=== PATIENT | female | born 1960 | race Caucasian/White ===

== ENCOUNTER 2017-09-10 10:58 | Emergency (ER) | payer BC ==
[2017-09-10 11:07] VITALS: BMI 26.4
[2017-09-10] MEDS ORDERED: ACETAMINOPHEN INJECTION 100 ML IVPB ONE (12:31)
[2017-09-10] MEDS ORDERED: SODIUM CHLORIDE 1,000 ML IV STA ×2 (12:49→14:39)
[2017-09-10] MEDS ORDERED: ACETAMINOPHEN 1000 MG/100 ML VIAL (NON FORMULARY) IVPB ONE (12:49)
[2017-09-10 13:05] LABS: BASOPHIL 0.2 % (0-2.0); EOSINOPHIL 0.1 % (0-4.5); MCH 28.1 pg (25.7-33.7); MCHC 32.6 g/dl (32.0-36.0); MEAN CELL VOLUME 86.4 fl (80-96); MEAN PLT VOLUME 8.2 fl (7.5-11.1); NEUTROPHILS 93.1 % (42.8-82.8); PLATELET COUNT 259 K/MM3 (134-434); RDW 13.4 % (11.6-15.6); WHITE BLOOD COUNT 11.7 K/mm3 (4.0-10.0)
[2017-09-10 13:06] LABS: URINE APPEARANCE SLCLOUDY; URINE BILIRUBIN NEGATIVE (NEGATIVE); URINE BLOOD NEGATIVE (NEGATIVE); URINE COLOR YELLOW; URINE GLUCOSE (UA) NEGATIVE (NEGATIVE); URINE KETONE NEGATIVE (NEGATIVE); URINE LEUK ESTERASE NEGATIVE (NEGATIVE); URINE NITRITE NEGATIVE (NEGATIVE); URINE PROTEIN NEGATIVE (NEGATIVE); URINE UROBILINOGEN NEGATIVE mg/dL (0.2-1.0)
--- NOTE | 2017-09-10 13:10 | PDOC ---
History of Present Illness <Osman Bravo - Last Filed: 09/10/17 14:46> - General History Source: Patient Exam Limitations: No Limitations - History of Present Illness Travel History: No Initial Comments: 09/10/17 12:10 56-year-old female presents to the ED with complaints of sudden onset of generalized abdominal pain associated with chills and mild nausea. Patient denies recent travel, recent illness, GI disorders, recent change in diet, recent sick contacts. Patient has no urinary complaints, rash, abdominal distention, or history of GI disorders. Timing/Duration: reports: constant, getting worse Quality: reports: moderate, cramping Abdominal Pain Onset Location: reports: generalized abdomen Pain Radiation: reports: no radiation Activities at Onset: reports: none Aggravating Factors: improves with: None Alleviating Factors: improves with: None <Medina Hayes - Last Filed: 09/10/17 19:34> - General Chief Complaint: Pain Stated Complaint: ABD PAIN Time Seen by Provider: 09/10/17 12:02 Past History <Osman Bravo - Last Filed: 09/10/17 14:46> - Travel Traveled outside of the country in the last 30 days: No - Past Medical History COPD: No HTN: No Hypercholesterolemia: No - Surgical History Appendectomy: Yes - Suicide/Smoking/Psychosocial Hx Smoking Status: No Smoking History: Never smoked Number of Cigarettes Smoked Daily: 0 Hx Alcohol Use: No Drug/Substance Use Hx: No Substance Use Type: None Patient Lives Alone: No Lives with/in: spouse/SO <Medina Hayes - Last Filed: 09/10/17 19:34> - Past Medical History Allergies/Adverse Reactions: Allergies Allergy/AdvReac Type Severity Reaction Status Date / Time No Known Allergies Allergy Verified 09/10/17 11:07 Home Medications: Ambulatory Orders Ondansetron [Zofran Odt -] 4 mg SL TID PRN #12 od.tablet 09/10/17 Review of Systems - Review of Systems Able to Perform ROS?: Yes Constitutional: Yes: Chills, Fever HEENTM: No: Symptoms Reported Respiratory: No: Symptoms reported Cardiac (ROS): No: Symptoms Reported ABD/GI: Yes: Nausea, Abdominal cramping : No: Symptoms Reported Musculoskeletal: No: Symptoms Reported Integumentary: No: Symptoms Reported Neurological: No: Symptoms reported <Freddy[place] - Last Filed: 09/10/17 19:34> *Physical Exam - Vital Signs Last Vital Signs Temp Pulse Resp BP Pulse Ox 100.7 F H 101 H 20 133/79 98 09/10/17 11:05 09/10/17 11:05 09/10/17 11:05 09/10/17 11:05 09/10/17 11:05 <Osman Bravo - Last Filed: 09/10/17 14:46> - Vital Signs Last Vital Signs Temp Pulse Resp BP Pulse Ox 100.7 F H 101 H 20 133/79 98 09/10/17 11:05 09/10/17 11:05 09/10/17 11:05 09/10/17 11:05 09/10/17 11:05 - Physical Exam General Appearance: Yes: Nourished, Appropriately Dressed. No: Apparent Distress HEENT: positive: Pharynx Normal. negative: Pale Conjunctivae Neck: positive: Supple Respiratory/Chest: positive: Lungs Clear, Normal Breath Sounds. negative: Respiratory Distress, Accessory Muscle Use Cardiovascular: positive: Regular Rhythm, Tachycardia. negative: Murmur Gastrointestinal/Abdominal: positive: Normal Bowel Sounds, Soft, Guarding (mild generalized), Tenderness (generalized). negative: Distended, Rebound Musculoskeletal: negative: CVA Tenderness Extremity: positive: Normal Capillary Refill. negative: Pedal Edema Integumentary: positive: Normal Color, Warm, Moist Neurologic: positive: Motor Strength 5/5 (ambulatory) <Freddy[place] - Last Filed: 09/10/17 19:34> ED Treatment Course - LABORATORY CBC & Chemistry Diagram: 09/10/17 12:50 09/10/17 12:50 - ADDITIONAL ORDERS Additional order review: Laboratory Results 09/10/17 09/10/17 09/10/17 13:33 12:50 12:50 PT with INR INR Sodium Potassium Chloride Carbon Dioxide Anion Gap BUN Creatinine Creat Clearance w eGFR Random Glucose Lactic Acid 2.8 H* Calcium Total Bilirubin AST ALT Alkaline Phosphatase Creatine Kinase Troponin I Total Protein Albumin Lipase Cancelled Urine Color Urine Appearance Urine pH Ur Specific [place] Urine Protein Urine Glucose (UA) Urine Ketones Urine Blood Urine Nitrite Urine Bilirubin Urine Urobilinogen Blood Type O POSITIVE Antibody Screen Negative 12/09/10/17 09/10/17 12:50 12:50 12:50 PT with INR 13.00 H INR 1.15 H Sodium 139 Potassium 3.9 Chloride 103 Carbon Dioxide 28 Anion Gap 8 BUN 14 Creatinine 0.8 Creat Clearance w eGFR > 60 Random Glucose 113 H Lactic Acid Calcium 8.9 Total Bilirubin 0.6 D AST 20 ALT 27 Alkaline Phosphatase 172 H Creatine Kinase 110 Troponin I < 0.02 Total Protein 8.0 Albumin 3.9 Lipase 93 Urine Color Yellow Urine Appearance Slcloudy Urine pH 5.0 Ur Specific [place] 1.023 Urine Protein Negative Urine Glucose (UA) Negative Urine Ketones Negative Urine Blood Negative Urine Nitrite Negative Urine Bilirubin Negative Urine Urobilinogen Negative Blood Type Antibody Screen 09/10/17 13:00 Influenza Types A,B Antigen (GIAN) - Final Nasopharyngeal Swab - Final 09/10/17 12:50 RBC 5.04 MCV 86.4 MCHC 32.6 RDW 13.4 MPV 8.2 Neutrophils % 93.1 H Lymphocytes % 3.0 L D Monocytes % 3.6 L Eosinophils % 0.1 Basophils % 0.2 - Medications Given in the ED: ED Medications Discontinued Medications Generic Name Dose Route Start Last Admin Trade Name Freq PRN Reason Stop Dose Admin Acetaminophen 1,000 mg 09/10/17 12:49 09/10/17 12:53 Ofirmev Injection - IVPB 09/10/17 12:50 1,000 mg ONCE ONE Administration Sodium Chloride 1,000 mls @ 1,000 mls/hr 09/10/17 12:49 09/10/17 12:53 Normal Saline - IV 09/10/17 13:48 1,000 mls/hr ASDIR STA Administration <Osman Bravo - Last Filed: 09/10/17 14:46> - LABORATORY CBC & Chemistry Diagram: 09/10/17 12:50 09/10/17 12:50 - RADIOLOGY Radiology Studies Ordered: Category Date Time Status CHEST X-RAY PORTABLE* [RAD] Stat Radiology 09/10/17 12:49 Ordered <Medina Hayes - Last Filed: 09/10/17 19:34> Medical Decision Making - Medical Decision Making 09/10/17 12:21 Patient here for generalized abdominal pain and fever/chills. Patient arrives febrile and tachycardic. Patient had a septic workup including lipase, IV Tylenol , IV fluids, and will reevaluate shortly. 09/10/17 13:23 Laboratory Tests 09/10/17 09/10/17 12:50 12:50 WBC 11.7 H D Hgb 14.2 Hct 43.5 Neutrophils % 93.1 H Lymphocytes % 3.0 L D Monocytes % 3.6 L Urine Nitrite Negative 09/10/17 14:00 Patient states feeling much better. Patient's chest x-ray was negative. Patient pending influenza and lipase. if negative will discharge home with Zofran with recommendations to take Pedialyte for hydration. Endorsed to medical grade shoemaker 09/10/17 14:01 Laboratory Tests 09/10/17 09/10/17 12:50 13:33 Sodium 139 Potassium 3.9 Chloride 103 Carbon Dioxide 28 Anion Gap 8 BUN 14 Creatinine 0.8 Random Glucose 113 H AST 20 ALT 27 Alkaline Phosphatase 172 H Troponin I < 0.02 Lipase Pending <Medina Hayes - Last Filed: 09/10/17 19:34> *DC/Admit/Observation/Transfer - Discharge Dispostion Decision to Admit order Date/Time: Decision to Admit Order Category Date Time Status Decision to Admit to Hospital Routine Admission 09/10/17 14:40 Ordered <Osman Bravo - Last Filed: 09/10/17 14:46> <Medina Hayes - Last Filed: 09/10/17 19:34> Diagnosis at time of Disposition: Abdominal pain, Diarrhea, Gastroenteritis - Discharge Dispostion Disposition: HOME Condition at time of disposition: Stable - Prescriptions Prescriptions: Ondansetron [Zofran Odt -] 4 mg SL TID PRN #12 od.tablet PRN Reason: Nausea - Referrals Referrals: Otis Ramírez MD [Primary Care Provider] - - Patient Instructions Printed Discharge Instructions: Viral Gastroenteritis, DI for Abdominal Pain- Adult Additional Instructions: Follow up with Dr. Ramírez tomorrow. Stay hydrated and drink plenty of fluids. Please return if any return or increase in pain, nausea, fever, or other concerning symptoms. - Post Discharge Activity Forms/Work/School Notes: Back to Work
[2017-09-10 13:21] LABS: INR 1.15 (0.82-1.09)
[2017-09-10 13:29] LABS: ALBUMIN 3.9 g/dl (3.4-5.0); ANION GAP 8 (8-16); BILIRUBIN,TOTAL 0.6 mg/dL (0.2-1.0); CALCIUM 8.9 mg/dL (8.5-10.1); CO2 28 mmol/L (21-32); CREATININE 0.8 mg/dL (0.55-1.02); GLUCOSE,RANDOM 113 mg/dL (74-106); SGOT/AST 20 U/L (15-37); SGPT/ALT 27 U/L (12-78)
[2017-09-10 13:32] LABS: ALK PHOS 172 U/L (45-117); CPK 110 IU/L (26-192); TROPONIN I < 0.02 ng/ml (0.00-0.05)
--- NOTE | 2017-09-10 14:48 | PDOC ---
*Physical Exam - Vital Signs Last Vital Signs Temp Pulse Resp BP Pulse Ox 100.7 F H 101 H 20 133/79 98 09/10/17 11:05 09/10/17 11:05 09/10/17 11:05 09/10/17 11:05 09/10/17 11:05 ED Treatment Course - LABORATORY CBC & Chemistry Diagram: 09/10/17 12:50 09/10/17 12:50 - ADDITIONAL ORDERS Additional order review: Laboratory Results 09/10/17 09/10/17 09/10/17 13:33 12:50 12:50 PT with INR INR Sodium Potassium Chloride Carbon Dioxide Anion Gap BUN Creatinine Creat Clearance w eGFR Random Glucose Lactic Acid 2.8 H* Calcium Total Bilirubin AST ALT Alkaline Phosphatase Creatine Kinase Troponin I Total Protein Albumin Lipase Cancelled Urine Color Urine Appearance Urine pH Ur Specific [place] Urine Protein Urine Glucose (UA) Urine Ketones Urine Blood Urine Nitrite Urine Bilirubin Urine Urobilinogen Blood Type O POSITIVE Antibody Screen Negative 09/10/17 09/10/17 09/10/17 12:50 12:50 12:50 PT with INR 13.00 H INR 1.15 H Sodium 139 Potassium 3.9 Chloride 103 Carbon Dioxide 28 Anion Gap 8 BUN 14 Creatinine 0.8 Creat Clearance w eGFR > 60 Random Glucose 113 H Lactic Acid Calcium 8.9 Total Bilirubin 0.6 D AST 20 ALT 27 Alkaline Phosphatase 172 H Creatine Kinase 110 Troponin I < 0.02 Total Protein 8.0 Albumin 3.9 Lipase 93 Urine Color Yellow Urine Appearance Slcloudy Urine pH 5.0 Ur Specific [place] 1.023 Urine Protein Negative Urine Glucose (UA) Negative Urine Ketones Negative Urine Blood Negative Urine Nitrite Negative Urine Bilirubin Negative Urine Urobilinogen Negative Blood Type Antibody Screen 09/10/17 13:00 Influenza Types A,B Antigen (GIAN) - Final Nasopharyngeal Swab - Final 09/10/17 12:50 RBC 5.04 MCV 86.4 MCHC 32.6 RDW 13.4 MPV 8.2 Neutrophils % 93.1 H Lymphocytes % 3.0 L D Monocytes % 3.6 L Eosinophils % 0.1 Basophils % 0.2 - Medications Given in the ED: ED Medications Discontinued Medications Generic Name Dose Route Start Last Admin Trade Name Freq PRN Reason Stop Dose Admin Acetaminophen 1,000 mg 09/10/17 12:49 09/10/17 12:53 Ofirmev Injection - IVPB 09/10/17 12:50 1,000 mg ONCE ONE Administration Sodium Chloride 1,000 mls @ 1,000 mls/hr 09/10/17 12:49 09/10/17 12:53 Normal Saline - IV 09/10/17 13:48 1,000 mls/hr ASDIR STA Administration Medical Decision Making - Medical Decision Making 09/10/17 14:47 Care taken over from Medina Hayes. Lactate elevated, 1 L of NS administered since originally drawn. Patient reporting resolution of symptoms. Lactate redrawn for repeat analysis. 09/10/17 16:31 Repeat lactate normal level at 0.9. Patient reporting continued resolution of symptoms. Will d/c to home with instructions to f/u with PCP in 1-2 days. *DC/Admit/Observation/Transfer Diagnosis at time of Disposition: Abdominal pain Qualifiers: Abdominal location: generalized Qualified Code(s): R10.84 - Generalized abdominal pain - Discharge Dispostion Disposition: HOME Decision to Admit order Date/Time: Decision to Admit Order Category Date Time Status Decision to Admit to Hospital Routine Admission 09/10/17 14:40 Ordered - Referrals Referrals: Otis Ramírez MD [Primary Care Provider] - - Patient Instructions Printed Discharge Instructions: DI for Abdominal Pain-Adult Additional Instructions: Please return if any return or increase in pain, nausea, fever, or other concerning symptoms. Follow-up with your primary care provider in 1 to 2 days. - Post Discharge Activity
[2017-09-10 15:23] VITALS: TEMP 100.1
--- NOTE | 2017-09-10 16:43 | PDOC ---
*Physical Exam - Vital Signs Last Vital Signs Temp Pulse Resp BP Pulse Ox 100.1 F H 98 H 16 124/71 99 09/10/17 15:22 09/10/17 15:29 09/10/17 15:29 09/10/17 15:29 09/10/17 15:29 ED Treatment Course - LABORATORY CBC & Chemistry Diagram: 09/10/17 12:50 09/10/17 12:50 - ADDITIONAL ORDERS Additional order review: Laboratory Results 09/10/17 09/10/17 09/10/17 14:58 13:33 12:50 PT with INR INR Sodium Potassium Chloride Carbon Dioxide Anion Gap BUN Creatinine Creat Clearance w eGFR Random Glucose Lactic Acid 0.9 Calcium Total Bilirubin AST ALT Alkaline Phosphatase Creatine Kinase Troponin I Total Protein Albumin Lipase Cancelled Urine Color Urine Appearance Urine pH Ur Specific [place] Urine Protein Urine Glucose (UA) Urine Ketones Urine Blood Urine Nitrite Urine Bilirubin Urine Urobilinogen Blood Type O POSITIVE Antibody Screen Negative 09/10/17 09/10/17 09/10/17 12:50 12:50 12:50 PT with INR INR Sodium 139 Potassium 3.9 Chloride 103 Carbon Dioxide 28 Anion Gap 8 BUN 14 Creatinine 0.8 Creat Clearance w eGFR > 60 Random Glucose 113 H Lactic Acid 2.8 H* Calcium 8.9 Total Bilirubin 0.6 D AST 20 ALT 27 Alkaline Phosphatase 172 H Creatine Kinase 110 Troponin I < 0.02 Total Protein 8.0 Albumin 3.9 Lipase 93 Urine Color Yellow Urine Appearance Slcloudy Urine pH 5.0 Ur Specific [place] 1.023 Urine Protein Negative Urine Glucose (UA) Negative Urine Ketones Negative Urine Blood Negative Urine Nitrite Negative Urine Bilirubin Negative Urine Urobilinogen Negative Blood Type Antibody Screen 09/10/17 12:50 PT with INR 13.00 H INR 1.15 H Sodium Potassium Chloride Carbon Dioxide Anion Gap BUN Creatinine Creat Clearance w eGFR Random Glucose Lactic Acid Calcium Total Bilirubin AST ALT Alkaline Phosphatase Creatine Kinase Troponin I Total Protein Albumin Lipase Urine Color Urine Appearance Urine pH Ur Specific [place] Urine Protein Urine Glucose (UA) Urine Ketones Urine Blood Urine Nitrite Urine Bilirubin Urine Urobilinogen Blood Type Antibody Screen 09/10/17 13:00 Influenza Types A,B Antigen (GIAN) - Final Nasopharyngeal Swab - Final 09/10/17 12:50 RBC 5.04 MCV 86.4 MCHC 32.6 RDW 13.4 MPV 8.2 Neutrophils % 93.1 H Lymphocytes % 3.0 L D Monocytes % 3.6 L Eosinophils % 0.1 Basophils % 0.2 - Medications Given in the ED: ED Medications Discontinued Medications Generic Name Dose Route Start Last Admin Trade Name Mahnaz PRN Reason Stop Dose Admin Acetaminophen 1,000 mg 09/10/17 12:49 09/10/17 12:53 Ofirmev Injection - IVPB 09/10/17 12:50 1,000 mg ONCE ONE Administration Sodium Chloride 1,000 mls @ 1,000 mls/hr 09/10/17 12:49 09/10/17 12:53 Normal Saline - IV 09/10/17 13:48 1,000 mls/hr ASDIR STA Administration Sodium Chloride 1,000 mls @ 1,000 mls/hr 09/10/17 14:39 09/10/17 15:55 Normal Saline - IV 09/10/17 15:38 Not Given ASDIR STA Medical Decision Making - Medical Decision Making 09/10/17 16:44 Pt seen by the Advanced Practice Provider under my direct supervision Ancillary studies reviewed I agree with plan as outlined by the Advanced Practice Provider Briefly the patient presented today with diffuse abdominal pain associated with nonbloody and nonbilious emesis and diarrhea. The patient also had a fever and slight tachycardia on arrival. She attempted to see her primary doctor however the wait was too long and thus presented to the emergency department. On my evaluation after medication, the patient reports no abdominal pain and her abdominal exam is benign. She was able to drink a 20 ounce bottle of ladarius dinorah and keep it down. 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 The patient likely has viral gastroenteritis. We will give her a work note for tomorrow and discharge her with Zofran as needed for nausea. The patient will follow-up with Dr. Ramírez tomorrow. I discussed the physical exam findings, ancillary test results and final diagnoses with the patient. I answered all of the patient's questions. The patient was satisfied with the care received and felt comfortable with the discharge plan and treatment plan. The patient will call their primary care physician within 24 hours to arrange follow-up and will return to the Emergency Department with any new, persistent or worsening symptoms. *DC/Admit/Observation/Transfer Diagnosis at time of Disposition: Diarrhea, Gastroenteritis Abdominal pain Qualifiers: Abdominal location: generalized Qualified Code(s): R10.84 - Generalized abdominal pain - Discharge Dispostion Disposition: HOME Condition at time of disposition: Stable Admit: No - Prescriptions Prescriptions: Ondansetron [Zofran Odt -] 4 mg SL TID PRN #12 od.tablet PRN Reason: Nausea - Referrals Referrals: Otis Ramírez MD [Primary Care Provider] - - Patient Instructions Printed Discharge Instructions: Viral Gastroenteritis, DI for Abdominal Pain- Adult Additional Instructions: Follow up with Dr. Ramírez tomorrow. Stay hydrated and drink plenty of fluids. Please return if any return or increase in pain, nausea, fever, or other concerning symptoms. - Post Discharge Activity Forms/Work/School Notes: Back to Work - Attestations Physician Attestion: 09/10/17 16:42 I, Dr. Jason Win MD, attest that this document has been prepared under my direction and personally reviewed by me in its entirety. I further attest, that it accurately reflects all work, treatment, procedures and medical decision -making performed by me.
[2017-09-10 16:59] VITALS: BP 132/89; PULSE 104
[2017-09-10 17:03] LABS: URINE LEUK ESTERASE Negative (NEGATIVE)
== END 2017-09-10 16:59 | disposition home or self-care (01) ==
LOC: JER 10:58 → UNDOADMOB 14:40 → JERBED 14:40 → JER 16:59
PROC: 3E033NZ Introduction of Analgesics, Hypnotics, Sedatives into Peripheral Vein, Percutaneous Approach (ICD-10-PCS; principal; 2017-09-10)
DX: K52.9 Noninfective gastroenteritis and colitis, unspecified (principal)
CPT/HCPCS: 36415; 71010-TC; 80053; 81003; 82550; 83605; 83690; 84484; 85025; 85610; 86850; 86900; 86901; 87040; 87086; 87804; 99284-25

== ENCOUNTER 2019-12-04 00:04 | Emergency (ER) | payer BC ==
[2019-12-04 00:25] VITALS: BMI 24.5
--- NOTE | 2019-12-04 00:31 | PDOC ---
History of Present Illness - General Chief Complaint: Shortness of Breath Stated Complaint: S.O.B. - History of Present Illness Initial Comments: The pt is a 59F w/ no reported PMH who presents for evaluation of 9 hours of non-productive cough and 3 hours of right posterior thoracic pain. She reports the cough is non-productive. She denies associated fevers/chills, chest pain, trouble breathing, N/V, or abdominal pain. 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 She has not tried taking anything for her symptoms. Denies recent travel, prolonged immobilization, history of DVT/PE, history of malignancy Denies history of MA/stroke 12/04/19 00:43 Past History - Past Medical History Allergies/Adverse Reactions: Allergies Allergy/AdvReac Type Severity Reaction Status Date / Time No Known Allergies Allergy Verified 12/04/19 00:23 Home Medications: Ambulatory Orders Benzonatate [Tessalon Pearls -] 100 mg PO TID #15 capsule 12/04/19 COPD: No HTN: No Hypercholesterolemia: No - Surgical History Appendectomy: Yes - Psycho Social/Smoking Cessation Hx Smoking Status: No Smoking History: Never smoked Have you smoked in the past 12 months: No Number of Cigarettes Smoked Daily: 0 Information on smoking cessation initiated: No Hx Alcohol Use: No Drug/Substance Use Hx: No Substance Use Type: None Review of Systems - Review of Systems Able to Perform ROS?: Yes Comments:: GENERAL/CONSTITUTIONAL: No fever or chills. No weakness HEAD, EYES, EARS, NOSE AND THROAT: No change in vision. No change in hearing. No sore throat CARDIOVASCULAR: No chest pain or shortness of breath RESPIRATORY: Denies hemoptysis GASTROINTESTINAL: No nausea, vomiting, diarrhea or constipation GENITOURINARY: No dysuria, frequency, or change in urination MUSCULOSKELETAL: No joint or muscle swelling or pain. No neck or back pain SKIN: No rash NEUROLOGIC: No headache, vertigo, loss of consciousness, or change in strength/sensation ENDOCRINE: No increased thirst. No abnormal weight change HEMATOLOGIC/LYMPHATIC: No anemia, easy bleeding, or history of blood clots ALLERGIC/IMMUNOLOGIC: No hives or skin allergy 12/04/19 00:31 Is the patient limited Kazakh proficient: No *Physical Exam - Vital Signs Last Vital Signs Temp Pulse Resp BP Pulse Ox 98.7 F 93 H 20 149/93 100 12/04/19 00:23 12/04/19 00:23 12/04/19 00:23 12/04/19 00:23 12/04/19 00:23 - Physical Exam GENERAL: Awake, alert, and oriented to person/place/time, in no acute distress HEAD: No signs of trauma, normocephalic, atraumatic EYES: PERRLA, EOMI, sclera anicteric, conjunctiva clear ENT: Hearing grossly normal, nares patent, oropharynx clear without exudates. Moist mucosa LUNGS: No distress, speaks in full sentences, clear to auscultation bilaterally HEART: Regular rate and rhythm, normal S1 and S2, no murmurs appreciated, p eripheral pulses normal and equal bilaterally ABDOMEN: Soft, nontender, normoactive bowel sounds. No guarding, no rebound EXTREMITIES: Normal inspection, Normal range of motion, no edema. No clubbing or cyanosis NEUROLOGICAL: Cranial nerves II through XII grossly intact. Normal speech, normal gait, no focal sensorimotor deficits SKIN: Warm, Dry 12/04/19 00:31 Medical Decision Making - Medical Decision Making The pt is a 59F w/ no reported PMH who presents for evaluation of 9 hours of non-productive cough and 3 hours of right posterior thoracic pain. Low suspicion for ACS given history and physical Pt does not have pain w/o cough Lungs CTAB Low suspicion for PE ED Course CXR ECG Robitussin and Tylenol for symptomatic relief ECG w/ NSR; HR 92; QTc 432; no axis deviation; no RODGER 12/04/19 01:04 CXR, ED staff read, no PNA, PNX, effusion Plan for D/C w/ PCP f/u Discharge instructions and return precautions given Patient in agreement and verbalized understanding Dispo: Home 12/04/19 01:19 Discharge - Discharge Information Problems reviewed: Yes Clinical Impression/Diagnosis: Cough Condition: Stable Disposition: HOME - Admission No - Additional Discharge Information Prescriptions: Benzonatate [Tessalon Pearls -] 100 mg PO TID #15 capsule - Follow up/Referral Referrals: Otis Ramírez MD [Primary Care Provider] - - Patient Discharge Instructions Patient Printed Discharge Instructions: DI for Cough -- Adult Additional Instructions: For you symptoms, you may use salt water gargles, 1-2 spoonful of honey and warm lemon tea is appropriate as well for soothing qualities for sore throat/cough. minimize spread of infection given contagious nature, and cover your mouth and wash your hands adequately with soap and water. Stay well hydrated and rest. Cool air - walk around outdoors in the evening. May also try hot shower steam. This can alleviate the congestion and cough. You can also use Riccola - dual action with lemon/honey to soothe your throat and cough. Return precautions include respiratory distress, difficulty breathing, cyanosis, chest pain, lethargy, confusion, dehydration, high fevers or pain. - Post Discharge Activity Work/Back to School Note: Back to Work
[2019-12-04] MEDS ORDERED: guaiFENesin/D-METHORPHAN HB 10 ML UNIT-DOSE CUPS PO ONE (00:39)
[2019-12-04] MEDS ORDERED: ACETAMINOPHEN 325 MG TABLET (FP) PO ONE (00:47)
[2019-12-04] MEDS ORDERED: ACETAMINOPHEN 325 MG TABLET (FP) ONE (00:51)
[2019-12-04] MEDS ORDERED: guaiFENesin/CODEINE 5 ML UNIT-DOSE CUPS PO ONE ×2 (00:52→00:53)
--- NOTE | 2019-12-04 00:52 | PDOC ---
Attending Attestation - Resident Resident Name: Josh Posadas - ED Attending Attestation I have performed the following: I have examined & evaluated the patient, The case was reviewed & discussed with the resident, I agree w/resident's findings & plan - HPI HPI: 12/04/19 00:52 59F w/ no reported PMH who presents for evaluation of 9 hours of non-productive cough and 3 hours of right posterior thoracic pain. She reports the cough is non-productive. She denies associated fevers/chills, chest pain, trouble breathing, N/V, or abdominal pain. 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 She has not tried taking anything for her symptoms. Denies recent travel, prolonged immobilization, history of DVT/PE, history of malignancy Denies history of ID/stroke - Physicial Exam PE: 12/04/19 00:52 Agree with the resident's HPI and PE as documented in the electronic medical record. NAD, well appearing, EOMI, PERRL, nl conjunctiva, anicteric; neck supple. lungs clear, speaking clear/full sentences. RRR, abdomen soft nontender. no rebound, guarding. Back nontender. B[place] x4, no focal neuro deficits. No peripheral edema. normal color for ethnicity, WWP. 12/04/19 01:19 - Medical Decision Making 12/04/19 00:52 Vital Signs Temp Pulse Resp BP Pulse Ox 98.7 F 93 H 20 149/93 100 12/04/19 00:23 12/04/19 00:23 12/04/19 00:23 12/04/19 00:23 12/04/19 00:23 ddx. viral syndrome, URI, costochondritis, flu, msk strain. lungs clear, no respiratory distress CXR (2 view) Interpreted by ED Physician: no acute abnormality: no infiltrates, bones appear intact and structures normal alignment, cardiac silhouette within normal limits. no free air under diaphragm, no pneumothorax. flu swab is neg, given tylenol, robitussin, feels better normal VS, afebrile, sp O2>95% on RA, no difficulties. Pt to be discharged in stable condition. Patient and family made aware of clinical impression, treatment recommendations and disposition plan, return precautions discussed (including but not limited to new or persistent/worsening symptoms, pain, fevers, or signs of infection, chest pain, respiratory distress, inability to tolerate oral intake, dehydration, syncope, or neurologic changes). Follow up with PMD and/or specialist as recommended, follow up information provided, take medications as instructed for duration of time. continue with supportive care, avoid triggers and precipitants. All questions answered to patient's satisfaction and expressed understanding and comfort with this. At the time of discharge, the patient is alert, clinically improved, tolerating po and verbalizes understanding of instructions, satisfied with the care received and felt comfortable with the plan. Patient does not suffer from an acute life-thr eatening medical condition at this time and is safe for outpatient follow-up. 12/04/19 01:20 12/04/19 17:33 Heart Score/ECG Review #1 ECG reviewed & interpreted by me at: 00:55 General ECG Interpretation: Sinus Rhythm, Normal Rate, Normal Intervals Compared to previous ECG there are: No significant change 12/04/19 01:02 EKG normal sinus rhythm 92 bpm, no interval abnormalities, narrow QRS, ST and T wave segments and morphology normal.
[2019-12-04 01:47] VITALS: BP 139/92; PULSE 96; TEMP 98.5
--- NOTE | 2019-12-04 10:29 | EKG ---
Test Reason : Blood Pressure : / mmHG Vent. Rate : 092 BPM Atrial Rate : 092 BPM P-R Int : 162 ms QRS Dur : 088 ms QT Int : 350 ms P-R-T Axes : 029 -05 039 degrees QTc Int : 432 ms POOR DATA QUALITY, INTERPRETATION MAY BE ADVERSELY AFFECTED NORMAL SINUS RHYTHM NORMAL ECG WHEN COMPARED WITH ECG OF 10-MAY-2012 10:30, T WAVE INVERSION NO LONGER EVIDENT IN INFERIOR LEADS NONSPECIFIC T WAVE ABNORMALITY NO LONGER EVIDENT IN LATERAL LEADS Confirmed by Jose Rosa MD ([id number]) on 12/04/2019 10:28:27 AM Referred By: Confirmed By:Jose Rosa MD
== END 2019-12-04 01:48 | disposition home or self-care (01) ==
LOC: JER 00:04
DX: R05 Cough (principal)
CPT/HCPCS: 71046-TC-FY; 87804; 93005; 93010; 99284-25

== ENCOUNTER 2021-12-18 13:10 | Emergency (ER) | payer BC ==
[2021-12-18 13:31] VITALS: TEMP 98.4; BMI 26.4
[2021-12-18 14:53] LABS: BASO % 0.6 % (0-2.0); EOS % 2.4 % (0-4.5); HEMATOCRIT 40.9 % (32.4-45.2); HEMOGLOBIN 13.8 GM/dL (10.7-15.3); LYMPH % 25.3 % (8-40); MCH 29.1 pg (25.7-33.7); MCHC 33.7 g/dl (32.0-36.0); MEAN CELL VOLUME 86.2 fl (80-96); MEAN PLT VOLUME 7.6 fl (7.5-11.1); NEUT % 65.7 % (42.8-82.8); PLATELET COUNT 265 10^3/uL (134-434); RBC 4.74 M/mm3 (3.60-5.2); RDW 13.9 % (11.6-15.6); WHITE BLOOD COUNT 5.6 K/mm3 (4.0-10.0)
[2021-12-18 14:59] LABS: INR 1.12 (0.83-1.09); PROTHROMBIN TIME (PATIENT) 12.9 SEC (9.7-13.0)
[2021-12-18 15:02] LABS: ACTIVATED PTT 30.1 SECONDS (25.2-36.5)
[2021-12-18 15:16] LABS: ALBUMIN 3.8 g/dl (3.4-5.0); BLOOD UREA NITROGEN 14.1 mg/dL (7-18); MAGNESIUM 2.4 mg/dL (1.8-2.4)
[2021-12-18 15:17] LABS: URINE APPEARANCE CLEAR; URINE BILIRUBIN NEGATIVE (NEGATIVE); URINE COLOR YELLOW; URINE GLUCOSE (UA) NEGATIVE (NEGATIVE); URINE KETONE TRACE (NEGATIVE); URINE LEUK ESTERASE NEGATIVE (NEGATIVE); URINE NITRITE NEGATIVE (NEGATIVE); URINE PROTEIN NEGATIVE (NEGATIVE); URINE UROBILINOGEN 0.2 mg/dL (0.2-1.0)
[2021-12-18 15:19] LABS: CREATININE 0.8 mg/dL (0.55-1.3)
[2021-12-18 15:20] LABS: BILIRUBIN,TOTAL 0.5 mg/dL (0.2-1); TOT PROT 8.1 g/dl (6.4-8.2)
[2021-12-18] MEDS ORDERED: SODIUM CHLORIDE 0.9% 500 ML INFUS.BAG IV ONE (15:23)
[2021-12-18 15:24] LABS: PHENCYCLIDINE,URINE NEGATIVE (NEGATIVE); URINE BENZODIAZEPINES NEGATIVE (NEGATIVE)
[2021-12-18 15:25] LABS: METHADONE, UR NEGATIVE (NEGATIVE); OPIATES, URI NEGATIVE (NEGATIVE); URINE BARBITURATES NEGATIVE (NEGATIVE)
[2021-12-18 15:26] LABS: COCAINE, UR NEGATIVE (NEGATIVE); URINE AMPHETAMINES NEGATIVE (NEGATIVE)
[2021-12-18 16:52] VITALS: BP 127/86; PULSE 87
== END 2021-12-18 17:06 | disposition home or self-care (01) ==
LOC: JER 13:10
DX: R25.1 Tremor, unspecified (principal); R29.810 Facial weakness; R53.1 Weakness; W01.0XXA Fall on same level from slipping, tripping and stumbling without subsequent striking against object, initial encounter
CPT/HCPCS: 36415; 70450-TC; 71045-TC-FY; 80053; 80307; 81003; 82962; 83735; 85025; 85610; 85730; 86850; 86900; 86901; 93005; 93010; 99285-25

== ENCOUNTER 2024-01-09 21:36 | Emergency (ER) | payer BC ==
[2024-01-09 21:40] VITALS: BP 168/75; PULSE 85; RESP 18; TEMP 98.5; BMI 26.0
[2024-01-09] MEDS ORDERED: KETOROLAC TROMETHAMINE 30 MG/1 ML VIAL ONE (23:13)
[2024-01-09] MEDS ORDERED: METHOCARBAMOL 500 MG TABLET ONE (23:13)
[2024-01-09] MEDS ORDERED: LIDOCAINE 4% PATCH TP ONE (23:13)
[2024-01-09] MEDS: LIDOCAINE 5% TOPICAL PATCH TP ONE (23:17)
[2024-01-09] MEDS: METHOCARBAMOL 500 MG TABLET PO ONE (23:18)
[2024-01-09] MEDS: KETOROLAC TROMETHAMINE 30 MG/1 ML VIAL IM ONE (23:18)
[2024-01-10] MEDS ORDERED: ACETAMINOPHEN 325 MG TABLET (FP) ONE (00:37)
[2024-01-10] MEDS: ACETAMINOPHEN 325 MG TABLET (FP) PO ONE (00:38)
== END 2024-01-10 00:41 | disposition home or self-care (01) ==
LOC: JERFT 21:36 → JER 21:36
PROC: 3E0233Z Introduction of Anti-inflammatory into Muscle, Percutaneous Approach (ICD-10-PCS; principal; 2024-01-09)
DX: M25.511 Pain in right shoulder (principal); M54.2 Cervicalgia; M79.621 Pain in right upper arm; S46.911A Strain of unspecified muscle, fascia and tendon at shoulder and upper arm level, right arm, initial encounter
CPT/HCPCS: 73030-TC-RT-FY; 99284-25